=== PATIENT | female | born 1955 | race Caucasian/White ===

== ENCOUNTER 2022-02-25 05:20 | Emergency (ER) | payer MEDICARE, OTHER ==
[2022-02-25] MEDS ORDERED: Sodium Chloride 0.9% 250 ML IV SCH (08:45)
== END 2022-02-25 15:18 | disposition home or self-care (01) ==
LOC: JD.ED 05:20
DX: K92.2 Gastrointestinal hemorrhage, unspecified (principal); D64.9 Anemia, unspecified; E11.9 Type 2 diabetes mellitus without complications; I10 Essential (primary) hypertension; E66.9 Obesity, unspecified; Z68.38 Body mass index [BMI] 38.0-38.9, adult; Z87.891 Personal history of nicotine dependence
CPT/HCPCS: 36415; 36430; 85025; 86850; 86900; 86901; 86922; 96360; 96361; 99284; J7050; P9016; 99283

== ENCOUNTER 2022-02-28 09:10 | Emergency (ER) | payer MEDICARE, OTHER ==
[2022-02-28] MEDS ORDERED: Insulin Regular, Human 100 Units/ML 3 ML Vial SUBCUT ONE (09:58)
[2022-02-28] MEDS ORDERED: Insulin Glargine,Human Rec. Analog 100 Units/ML 3 ML Pen SUBCUT SCH (12:00)
[2022-02-28] MEDS ORDERED: Sodium Chloride 0.9% 250 ML IV SCH (14:00)
== END 2022-02-28 19:30 | disposition home or self-care (01) ==
LOC: JD.ED 09:10
DX: K92.2 Gastrointestinal hemorrhage, unspecified (principal); D64.9 Anemia, unspecified; E11.9 Type 2 diabetes mellitus without complications; I10 Essential (primary) hypertension; E66.9 Obesity, unspecified; Z68.38 Body mass index [BMI] 38.0-38.9, adult
CPT/HCPCS: 36415; 36430; 80053; 82009; 82947; 85025; 86850; 86900; 86901; 86922; 96360; 96361; 99285; J1815; J7050; P9016; 99284